=== PATIENT | female | born 1985 | race Caucasian/White ===

== ENCOUNTER → 2018-08-20 09:44 | Outpatient (CLI) | payer OTHER, SELFPAY ==
--- NOTE | 2018-08-20 09:50 | DI.US.S_ITS ---
LIMITED ULTRASOUND OF RIGHT BREAST: 08/20/2018 CLINICAL: Palpable right breast lump and galactorrhea in a patient who is no longer . Comparison is made to exam dated: 08/20/2018 [facility]. Ultrasound of the right breast 4 o'clock, and retroareolar regions was performed. There is mild, diffuse ductal ectasia. No intraductal masses. In the area of palpable concern, no abnormalities were seen sonographically in the right breast. IMPRESSION: NEGATIVE There is no sonographic evidence of malignancy. Clinical follow up for galactorrhea and palpable area. Findings and recommendations conveyed to the patient. This exam was interpreted at Station ID: [id number]. Electronically Signed By: Karissa siddiqi/:08/20/2018 12:33:26 letter sent: Clinical Evaluation Ultrasound BI-RADS: 1 Negative
--- NOTE | 2018-08-20 09:50 | DI.US.S_ITS ---
LIMITED ULTRASOUND OF LEFT BREAST: 08/20/2018 CLINICAL: Palpable left breast lump and galactorrhea in a patient who is no longer . No prior exams were available for comparison. Ultrasound of the left breast 2 o'clock, 8 o'clock, and retroareolar regions was performed. There is 0.6 cm x 0.3 cm x 0.6 cm oval mass in the left breast at 2 o'clock in the retroareolar region. This oval mass is hypoechoic without vascularity or posterior shadow. Mild diffuse ductal ectasia, symmetric compared to the contralateral breast. In the area of palpable abnormality, no sonographic findings. IMPRESSION: PROBABLY BENIGN The 0.6 cm x 0.3 cm x 0.6 cm oval mass in the left breast is probably benign, possibly glandular tissue focus. A follow-up ultrasound in 6 months is recommended to demonstrate stability. No abnormalities to correspond to palpable finding. Findings and recommendations conveyed to the patient. This exam was interpreted at Station ID: [id number]. Electronically Signed By: Karissa siddiqi/:08/20/2018 12:39:15 letter sent: Followup Recommended Ultrasound BI-RADS: 3 Probably benign
--- NOTE | 2018-08-20 09:50 | DI.MG.S_ITS ---
BILATERAL DIGITAL DIAGNOSTIC MAMMOGRAM 3D/2D: 08/20/2018 CLINICAL: Baseline exam. Galactorrhea. No prior exams were available for comparison. The tissue of both breasts is extremely dense, which lowers the sensitivity of mammography. No mammographic abnormalities seen in the retroareolar areas, or areas of bilateral palpable lumps. No significant masses, calcifications, or other findings are seen in either breast. IMPRESSION: INCOMPLETE: NEEDS ADDITIONAL IMAGING EVALUATION No mammographic abnormalities to correspond with clinical findings. Given extremely dense breasts, and palpable findings, ultrasound is recommended, and was immediately performed following this exam. This exam was interpreted at Station ID: [id number]. NOTE: For mammograms, a report in lay terms will be sent to the patient. Approximately 15% of breast malignancies will not be visualized mammographically. In the management of a palpable breast mass, a negative mammogram must not discourage biopsy of a clinically suspicious lesion. Electronically Signed By: Karissa siddiqi/:08/20/2018 12:29:07 ACR BI-RADS Category 0: Incomplete [id number]
== END ==
PROVIDERS: PCP Family Medicine; Visit Provider Family Medicine
DX: R92.8 Other abnormal and inconclusive findings on diagnostic imaging of breast (principal); N64.3 Galactorrhea not associated with childbirth
CPT/HCPCS: 76642; 77066; G0279

== ENCOUNTER 2021-09-13 17:57 | Emergency (ER) | payer OTHER, SELFPAY ==
[2021-09-13 18:47] VITALS: BP 125/65; PULSE 74; RESP 16; TEMP 36.7; O2SAT 100; BMI 22.6
--- NOTE | 2021-09-13 20:01 | ED_ITS ---
HPI - Animal Bite <James Gupta PA-C - Last Filed: 09/13/21 20:13> General Chief Complaint: Animal Bite Stated Complaint: Dog Bite, Right Wrist Time Seen by Provider: 09/13/21 19:26 History of Present Illness HPI narrative: Patient is a 35-year-old female presenting to the emergency department today for an evaluation a dog bite to the right wrist. Patient states that the family dog bit her right forearm earlier today causing her to sustain a puncture wound to the right forearm. Of note, the patient states that the dog has received all of its vaccinations and she explains that her tetanus is up-to-date. Patient denies pain or injury elsewhere. No fevers, chills, chest pain, cough, shortness of breath, nausea, vomiting, diarrhea, constipation, abdominal pain, dysuria, hematuria, numbness and tingling the upper extremities, or any other concerning symptoms reported. No further concerns were voiced at this time. Related Data Home Medications Medication Instructions Recorded Confirmed vitamin-ferrous fumarate 1 cap PO QDAY #0 04/28/16 65 mg iron-folic acid 1 mg capsule (Mynatal) Previous Rx's Medication Instructions Recorded norgestimate 0.25 mg-ethinyl 1 tab PO DAILY #84 tab 10/10/18 estradiol 35 mcg tablet (Ortho-Cyclen (28)) amoxicillin 875 mg-potassium 1 tab PO BID #13 tab 09/13/21 clavulanate 125 mg tablet Allergies Allergy/AdvReac Type Severity Reaction Status Date / Time No Known Allergies Allergy Uncoded 09/13/21 18:53 Review of Systems <James Gupta PA-C - Last Filed: 09/13/21 20:13> Constitutional Constitutional: Denies chills, Denies fatigue, Denies fever(s), Denies frequent falls, Denies lethargy and Denies weakness Eyes Eyes: Denies loss of vision ENT Ears, Nose, Mouth, and Throat: Denies dizziness and Denies neck pain Cardiovascular Cardiovascular: Denies chest pain, Denies irregular heart rhythm, Denies lightheadedness, Denies palpitations, Denies dyspnea, Denies dyspnea on exertion and Denies orthopnea Respiratory Respiratory: Denies cough, Denies dyspnea, Denies dyspnea on exertion and Denies wheezing Gastrointestinal Gastrointestinal: Denies abdominal pain, Denies change in bowel habits, Denies diarrhea, Denies nausea and Denies vomiting Genitourinary Genitourinary: Denies hematuria, Denies flank pain, Denies urinary incontinence and Denies urinary urgency Musculoskeletal Musculoskeletal: Denies back pain, Denies muscle weakness, Denies neck pain, Denies numbness and Denies tingling Integumentary/Breasts Skin/Breast: Denies pruritus, Denies erythema, Denies rash and Reports wounds (Dog bite/puncture wound right anterior forearm) Neurologic Neurologic: Denies behavioral changes, Denies confusion, Denies dizziness, Denies frequent falls, Denies loss of vision, Denies numbness, Denies tingling and Denies weakness Psychiatric Psychiatric: Denies behavioral changes and Denies confusion Endocrine Endocrine: Denies fatigue and Denies palpitations Allergic/Immunologic Allergic/Immunologic: Denies wheezing Patient History <James Gupta PA-C - Last Filed: 09/13/21 20:13> Social History Smoking Status: Never smoker Smoking Status: Never smoker Substance Use Type: does not use Exam <James Gupta PA-C - Last Filed: 09/13/21 20:13> Narrative Exam Narrative: GENERAL: 35 year old patient appears stated age. Well-developed patient, in no acute distress. HEAD: Atraumatic. Normocephalic. EYES: Pupils equal round and reactive. Extraocular motions intact. No scleral icterus. No injection or drainage. ENT: Nose without bleeding, purulent drainage. Throat without erythema, tonsillar hypertrophy or exudate. Airway patent. NECK: Trachea midline. Non tender CARDIOVASCULAR: Regular rate and rhythm without murmurs, gallops, or rubs. RESPIRATORY: Clear to auscultation. Breath sounds equal bilaterally. No wheezes, rales, or rhonchi. GASTROINTESTINAL: Abdomen soft, non-tender, nondistended. EXTREMITIES: No edema or joint tenderness. BACK: Nontender without deformity or crepitance. No flank tenderness. NEURO: AOx3. Gross motor function intact throughout the bilateral upper extrem ities. Good sensation light touch appreciated throughout the bilateral upper extremities. SKIN: No rash or erythema of visible areas. Puncture wound noted to the right anterior forearm approximately 0.2 cm in diameter. No significant surrounding erythema around the puncture wound. No foreign bodies appear retained within the wound. No active discharge or significant bleeding noticed from the wound. Initial Vital Signs Initial Vital Signs: Vital Signs Temperature 98.0 F 09/13/21 18:47 Pulse Rate 74 09/13/21 18:47 Respiratory Rate 16 09/13/21 18:47 Blood Pressure 125/65 09/13/21 18:47 Pulse Oximetry 100 09/13/21 18:47 <Kitty Pacheco MD - Last Filed: 09/14/21 03:57> Initial Vital Signs Initial Vital Signs: Vital Signs Temperature 98.0 F 09/13/21 18:47 Pulse Rate 74 09/13/21 18:47 Respiratory Rate 16 09/13/21 18:47 Blood Pressure 125/65 09/13/21 18:47 Pulse Oximetry 100 09/13/21 18:47 Course <James Gupta PA-C - Last Filed: 09/13/21 20:13> Course Course Narrative: Approximately 4 cc of 1% buffered lidocaine injected into the puncture site wound after it was cleaned with chlorhexidine. Wound was extensively irrigated with normal saline and a topical bacitracin was placed over the wound as it was wrapped. Orders Ordered: Discontinued Medications Amoxicillin/Clavulanate Potassium (Amoxicillin/Clav 875/125 Mg) 1 tab PO NOW ONE Stop: 09/13/21 20:02 Last Admin: 09/13/21 20:18 Dose: 1 tab Documented by: ALEXANDRIA Lidocaine/Sodium Bicarbonate (Lido 1%/Sod Bicarb 8.4% (10ml) 10 Ml Syringe) 10 ml INJ NOW ONE Stop: 09/13/21 19:45 Last Admin: 09/13/21 20:19 Dose: 10 ml Documented by: ALEXANDRIA Vital Signs Vital signs: Vital Signs - 8 hr 09/13/21 18:47 Temperature 98.0 F Pulse Rate 74 Respiratory Rate 16 Blood Pressure 125/65 Pulse Oximetry 100 <Kitty Pacheco MD - Last Filed: 09/14/21 03:57> Orders Ordered: Discontinued Medications Amoxicillin/Clavulanate Potassium (Amoxicillin/Clav 875/125 Mg) 1 tab PO NOW ONE Stop: 09/13/21 20:02 Last Admin: 09/13/21 20:18 Dose: 1 tab Documented by: A[place]ANDRIA Lidocaine/Sodium Bicarbonate (Lido 1%/Sod Bicarb 8.4% (10ml) 10 Ml Syringe) 10 ml INJ NOW ONE Stop: 09/13/21 19:45 Last Admin: 09/13/21 20:19 Dose: 10 ml Documented by: ALEXANDRIA Vital Signs Vital signs: Vital Signs - 8 hr 09/13/21 18:47 Temperature 98.0 F Pulse Rate 74 Respiratory Rate 16 Blood Pressure 125/65 Pulse Oximetry 100 MDM - Animal Bite <James Gupta PA-C - Last Filed: 09/13/21 20:13> MDM Narrative Medical decision making narrative: Differential diagnosis to consider but not limited to dog bite versus puncture wound versus superficial skin laceration versus deep tissue laceration verses abscess. Physical examination history overall very reassuring. I was able to be irrigated the wound extensively in the emergency department after cleaning the wound with chlorhexidine. I urged the patient to keep the area clean and dry and wrapped, and I a stress the importance of avoiding soaking the wound until it is completely healed. Additionally, I discussed plan with patient to start her on antibiotics. Patient expresses understanding and agrees to plan. I urged the patient follow-up with her primary care provider or here in the emergency department in the next few days for wound recheck. Patient expresses understanding and agrees to plan. She states that this time she is comfortable being discharged home and is stable for discharge. Strict return precautions were discussed with the patient prior to discharge. Discharge Plan Departure Patient Disposition: Home Clinical Impression: Dog bite, Puncture wound of forearm, right Instructions: DI for Dog Bite Activity Restrictions/Additional Instructions: *You have been diagnosed with dog bite, right forearm puncture wound *What to do: *Please continue to take your regular medications as directed. [X] New medication prescriptions sent to your pharmacy: [facility] - Augmentin [ ] New medication written as a paper prescription [ ] No new medications given You were evaluated in the emergency department today for a dog bite to the right forearm. Physical examination and history are very reassuring. Please ensure the keep the wound clean, dry, and wrapped and avoid soaking the wound until it is completely healed. I recommend following up with the primary care provider, at urgent care, or here in the emergency department in the next few days to have the wound re-evaluated to ensure there are no signs of infection. I have sent a prescription antibiotics to your preferred pharmacy. Ensure that you completed this antibiotic course and take as directed. I recommend following up with the primary care provider within the next 2-3 days for further evaluation and management. Please do not hesitate to return to the emergency department if you experience fever, discharge from the wound, swelling and warmth around the wound, or any other concerning symptoms. *Please follow up with your primary care provider in 2-3 days, call for an appointment. Let them know you were seen in the Emergency Department and that we ask that you be seen in follow up. We will electronically transmit a record of today's note if your PCP is in our system *If you do not have a primary care provider please contact the [facility] Resource line at [phone]. They will ask some questions about your medical history and help get you set up with a doctor in the community. *Return to Emergency Department if you should have any new, worsening or conc erning symptoms, such as fever greater than 101 F, shaking chills, worsening pain, persistent vomiting or other bothersome symptoms. Prescriptions: New amoxicillin-pot clavulanate 875-125 mg tablet 1 tab PO BID Qty: 13 0RF No Action vit-iron fum-folic ac [Mynatal] 1 CAP capsule 1 cap PO QDAY Qty: 0 0RF norgestimate-ethinyl estradiol [Ortho-Cyclen (28)] 0.25-35 mg-mcg tablet 1 tab PO DAILY Qty: 84 1RF Referrals: Ivana Singleton MD [Primary Care Provider] - <Kitty Pacheco MD - Last Filed: 09/14/21 03:57> [facility] I was immediately available in the department for consultation throughout this patient's visit. I agree with documentation as above. Kitty Pacheco MD
[2021-09-13] MEDS: AMOXICILLIN/CLAV 875/125 MG 1 TAB PO (20:18)
[2021-09-13] MEDS: LIDO 1%/SOD BICARB 8.4% (10ML) 10 ML SYRINGE INJ (20:19)
== END 2021-09-13 20:30 | disposition home or self-care (01) ==
PROVIDERS: Emergency Provider Physician Assistant; PCP Family Medicine
DX: S51.851A Open bite of right forearm, initial encounter (principal); W54.0XXA Bitten by dog, initial encounter
CPT/HCPCS: 99283

== ENCOUNTER 2023-04-03 14:00 | Outpatient (RCR) | payer OTHER, SELFPAY ==
--- NOTE | 2023-02-27 18:19 | PT.OIE ---
Current Diagnoses Stiffness of unspecified hip, not elsewhere classified (02/27/23) Separation of muscle (nontraumatic), other site (02/27/23) Muscle weakness (generalized) (02/27/23) Other female genital prolapse (02/27/23) Visit Care Team Role Provider Type Elvia Chacko PA-C Attending Provider Non-Staff Family Provider Primary Care Provider Referring Provider Specialty: Medical Address: [address] [place] [address], [address] Phone: Fax: Email: [email or web address] [facility] Initial Evaluation PT-OP-A Visit Information Start: 02/23/23 17:41 Freq: Status: Active Protocol: Document 02/27/23 13:22 LRN (Rec: 02/27/23 14:17 LRN [id number]) Out-Patient Physical Therapy Visit Information Visit Information Visit Type Initial Evaluation Visit Start Time 13:22 Visit Stop Time 14:14 Total Visit Minutes 52 Visit Number 06/17 Evaluation Information Evaluation Date 02/27/23 Precautions Precautions mini-abdominoplasty PT-OP-B Current Condition Start: 02/23/23 17:41 Freq: Status: Active Protocol: Document 02/27/23 13:22 LRN (Rec: 02/27/23 14:17 LRN [id number]) Current Condition History of Current Condition Onset Date 6 months ago. Current Complaints Weakness of PF with sexual intercourse. History of Current Condition Pt denies bladder leakage. With sexual intercourse notices she is not as tight in PF and thinks it may be due to changes with her cycle. She reports a scan has show uterus is retroverted to the back and right. She feels her uterus has shifted previously , but is not been identified by imaging. States after 3 children her uterus may have moved. States her lower abdominal ms are not as tight. Has done Kegels and DR monae's but doesn't physically see a change in the bump in the lower abdominals. Prior Treatments and Tests None. Developmental History Developmental History 3 pregnancies and 3 births and all vaginal (13, 11, almost 7 yo). Minor tearing with firstborn and small with the 2nd . Denies urinary leakage after births. Treatment Goals Patient/Caregiver Goals Pt goals: Would like to increase tightness of the PF contractions during intercourse. Strength the lower abdomen to reduce the bump of the DRDorene HEP to continue to further reduce the bump from DR. Personal Factors Other Personal Factors That May Effect Cosemetic surgeries: Breast Therapy/Recovery augmentation, Mini abdominalplasty of skin, nothing muscular. Pt will be moving out of state with spouse by . PT-OP-C Subjective Start: 02/23/23 17:41 Freq: Status: Active Protocol: Document 02/27/23 13:22 LRN (Rec: 02/27/23 14:17 LRN [id number]) Patient Questionnaires Pelvic Pain and Urgency/Frequency Patient Symptom Scale Pelvic Pain Score 2 PT-OP-I Pelvic Floor Start: 02/23/23 17:41 Freq: Status: Active Protocol: Document 02/27/23 13:22 LRN (Rec: 02/27/23 14:17 LRN [id number]) Pelvic Floor Assessment Bowel Bowel Symptoms Constipation Other Bowel Symptoms Intermittently Bowel Movement Frequency 1-3 daily Pasco Stool Chart Type 1-7 2 Pasco Stool Chart Comments Mostly bowels type 2 & 6 Pelvic Clock Pelvic Clock 12-3 Tenderness Pelvic Clock 3-6 Tenderness Pelvic Clock 9-12 Tenderness Prolapse Rectocele Grade 2 Perineal Descent Resting Absent Bearing Absent Contraction Ability Voluntary Contraction Moderate Voluntary Relaxation Moderate Manual Muscle Testing Left 3 Manual Muscle Testing Right 0 Manual Muscle Testing Anterior 2 Manual Muscle Testing Posterior 3 Muscle Endurance (Seconds) 3 Number of Quick Contractions In 10 5 Seconds Comments Pelvic Floor Comments Visible Anal wink & mild clitoral nod. Excessive loose tissue felt at 6 of the PF clock. Area of tissue bulge felt at 10-11 of the PF clock. PT-OP-J Posture/Palpation/Skin Start: 02/23/23 17:41 Freq: Status: Active Protocol: Document 02/27/23 13:22 LRN (Rec: 02/27/23 14:17 LRN [id number]) Posture Evaluation Position Standing Head/C-Spine Posture Neutral Position T-Spine Posture Neutral L-Spine Posture Neutral Shoulder Posture (L) Elevated Pelvis Posture Neutral Weight Distribution Balanced Knee Posture (L) Genu Varus,(R) Genu Varus PT-OP-K Range of Motion Start: 02/23/23 17:41 Freq: Status: Active Protocol: Document 02/27/23 13:22 LRN (Rec: 02/27/23 14:17 LRN [id number]) Lumbar Spine Range of Motion Lumbar Spine Active Degrees Testing Position Standing Flexion 87 Extension 15 Rotation Left 40 Rotation Right 30 Lateral Flexion Left 20 Lateral Flexion Right 13 Comments Trunk AROM: Flexion is 87 deg ?s with 52 deg?s hip flexion, Trunk extension is 20 deg?s with 15 deg?s hip extension. Hip Goniometric Range of Motion Hip Right Passive Testing Position Supine Internal Rotation 55 External Rotation 60 Left Passive Testing Position Supine Internal Rotation 60 External Rotation 60 PT-OP-M Strength Start: 02/23/23 17:41 Freq: Status: Active Protocol: Document 02/27/23 13:22 LRN (Rec: 02/27/23 14:17 LRN [id number]) Trunk Strength Trunk Manual Muscle Testing Core Stabilization Loss of core stab and abdominal doming is present ( with exception of hip ext) with R hip flex, ext, AD. Hip Strength Hip Manual Muscle Testing Right Flexion (L2) 5 Normal Extension (S1) 4 Good Abduction 5 Normal Adduction 4+ Good+ External Rotation 5 Normal Internal Rotation 3+ Fair+ Left Flexion (L2) 5 Normal Extension (S1) 5 Normal Abduction 5 Normal Adduction 5 Normal External Rotation 4 Good Internal Rotation 3+ Fair+ PT-OP-Q Treatments Start: 02/23/23 17:41 Freq: Status: Active Protocol: Document 02/27/23 13:22 LRN (Rec: 02/27/23 14:17 LRN [id number]) Therapeutic Exercises Sitting Exercises Abdominal deep breathing Sitting Exercise Name Deep Breathing Reps/Minutes 2 Self-Care/Home Management Treatment Education Other Education Discussed results of evaluation, goals, and plan of care (POC). Pt agreeable to goals and POC. Activities Self-Care/Home Management Activities I/S pt in abdominal deep breathing. Pt to work on relaxation of her PF after PF contractions. PT-OP-T Assessment and Plan Start: 02/23/23 17:41 Freq: Status: Active Protocol: Document 02/27/23 13:22 LRN (Rec: 02/27/23 14:17 LRN [id number]) Physical Therapy Assessment Rehab Potential Rehabilitation Potential Excellent Evaluation Complexity Number of Personal Factors/Comorbidities 1-2 Number of Body Systems Impaired 3 Clinical Presentation at Evaluation Stable Impairments Impairments ROM,Soft Tissue Mobility, Strength Goals Three Impairment Decreased PF contraction strength with sexual intercourse Short Term Goal (STG) Eliminate PF tenderness to improve PF contraction strength. STG Duration 03/20/23 (3 weeks) Mcc Goal (LTG) Pt and spouse will notice an increase feeling of PF tightness with sexual intercourse. LTG Duration 04/10/23 (6 weeks) Two Impairment Abdominal doming with TA tightening and daily activities Impairment Doming visible with transfers and pt daily activities. Umbilicus 4 above: Closed Umbilicus 3 above: 1/4 finger widths Umbilicus 2 above: 2 finger widths, very shallow Umbilicus 1 above: 2 finger widths, very shallow Umbilicus Umbilicus: 1 below: 2.5 finger widths Umbilicus: 2 below: 2.5 finger widths Umbilicus: 3 below: Closed Short Term Goal (STG) Strengthen TA to decrease doming with transfers. STG Duration 03/20/23 (3 weeks) [employer] Goal (LTG) Strength the lower abdomen with reduction of DR and reduction of doming with daily activities. LTG Duration 04/10/23 (6 weeks) One Impairment Lacks appropriate self care HEP Short Term Goal (STG) Pt will be educated in proper deep breathing and core pressure management. STG Duration 03/10/23 (2 weeks) Mcc Goal (LTG) Pt will be educated in a self care HEP of progressive core strengthening without onset of doming of abdomen. 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 The pt demonstrates tenderness/ tightness of her PF and DR of 2-2.5 finger widths (but shallow). 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 The pt should respond well to STM to the PF to improve her strength. Her DR is not severe but due to the chronicity of her DR, fair to good prognosis in decreasing the DR. I believe STM and strengthening to the abdomen will be beneficial in achieving greater closure of her DR. The pt will be leaving in 6 wks due to her spouse being transferred; therefore she may need further physical therapy once she relocates to a new location. The pt will benefit from skilled physical therapy to improve her PF strength, reduce her DR and for pt education, mobility exercises, body mechanics training and STM to help her achieve her above stated goals. Physical Therapy Plan Frequency and Duration Frequency of Treatment 1x/Week Duration of treatment (weeks) 6 Plan of Care Start Date 02/27/23 Plan of Care End Date 04/10/23 Therapeutic Interventions Therapeutic Interventions Home Exercise Program,Joint Mobilizations,Manual Therapy, Neuromuscular Re-education, Patient/Caregiver Education, Self-Care/Home Management,Soft Tissue Mobilization, Therapeutic Activities, Therapeutic Exercises Modalities Biofeedback,Electric Stimulation Other Referrals/Consults Referrals/Consults Recommended Recommend OBGYN assessment of soft tissue anomaly of 10-11 of PF clock. Next Visit Focus/Plan Next Note Type Treatment Note Next Visit Plan Next: Refer pt back to request OBGYN consult for soft tissue anomaly of 10-11 of PF clock. EMG Biofeedback for PF strength assessment. Biofeedback for most likely PF relaxation between reps. DR reduction: Deep breathing, TA strengthening (4 pt, hands /knees push)/core strengthening, hip R AD & humza IR strengthening. Stretches: Hip ER & Trunk R SB & rot stretch Manual: PF stretching and issuance of dilator if needed. Stretch abdominal region for tightness/restrictions to close DR (abdominal rotators, TA & QL). PF stretch to decrease pain. ? Iliococcygeus and coccygeous of levator ani ms ? external and internal to correct PF tone dysfunction & levator ani release as needed. STM: Urachus & Round Ligament. Education: Deep breathing, core pressure management. JMT: Sacral balancing if needed.
--- NOTE | 2023-03-13 16:17 | PT.OTN ---
Current Diagnoses Stiffness of unspecified hip, not elsewhere classified (03/13/23) Separation of muscle (nontraumatic), other site (03/13/23) Muscle weakness (generalized) (03/13/23) Other female genital prolapse (03/13/23) Physical Therapy Treatment Note PT-OP-A Visit Information Start: 02/23/23 17:41 Freq: Status: Active Protocol: Document 03/13/23 13:19 LRN (Rec: 03/13/23 14:06 LRN [id number]) Out-Patient Physical Therapy Visit Information Visit Information Visit Type Treatment Note Visit Start Time 13:20 Visit Stop Time 13:58 Total Visit Minutes 38 Visit Number 3 Evaluation Information Evaluation Date 02/27/23 Precautions Precautions mini-abdominoplasty PT-OP-B Current Condition Start: 02/23/23 17:41 Freq: Status: Active Protocol: Document 02/27/23 13:22 LRN (Rec: 02/27/23 14:17 LRN [id number]) Current Condition History of Current Condition Onset Date 6 months ago. Current Complaints Weakness of PF with sexual intercourse. History of Current Condition Pt denies bladder leakage. With sexual intercourse notices she is not as tight in PF and thinks it may be due to changes with her cycle. She reports a scan has show uterus is retroverted to the back and right. She feels her uterus has shifted previously , but is not been identified by imaging. States after 3 children her uterus may have moved. States her lower abdominal ms are not as tight. Has done Kegels and DR monae's but doesn't physically see a change in the bump in the lower abdominals. Prior Treatments and Tests None. Developmental History Developmental History 3 pregnancies and 3 births and all vaginal (13, 11, almost 7 yo). Minor tearing with firstborn and small with the 2nd . Denies urinary leakage after births. Treatment Goals Patient/Caregiver Goals Pt goals: Would like to increase tightness of the PF contractions during intercourse. Strength the lower abdomen to reduce the bump of the DRDorene HEP to continue to further reduce the bump from DR. Personal Factors Other Personal Factors That May Effect Cosemetic surgeries: Breast Therapy/Recovery augmentation, Mini abdominalplasty of skin, nothing muscular. Pt will be moving out of state with spouse by . PT-OP-C Subjective Start: 02/23/23 17:41 Freq: Status: Active Protocol: Document 03/13/23 13:19 LRN (Rec: 03/13/23 14:06 LRN [id number]) OP-PT Subjective Patient Comments Patient Comments Doing, at end of 10 reps, feels tired. PT-OP-I Pelvic Floor Start: 02/23/23 17:41 Freq: Status: Active Protocol: Document 03/06/23 13:00 LRN (Rec: 03/06/23 14:05 LRN [id number]) Pelvic Floor Assessment SEMG (uV) Baseline 4.9 Quick Contraction 12.7 Recruitment Pattern Good Relaxation Fair Holding Fair Stability of Hold Poor/Slow SEMG Stability of Rest Poor/Slow PT-OP-J Posture/Palpation/Skin Start: 02/23/23 17:41 Freq: Status: Active Protocol: Document 02/27/23 13:22 LRN (Rec: 02/27/23 14:17 LRN [id number]) Posture Evaluation Position Standing Head/C-Spine Posture Neutral Position T-Spine Posture Neutral L-Spine Posture Neutral Shoulder Posture (L) Elevated Pelvis Posture Neutral Weight Distribution Balanced Knee Posture (L) Genu Varus,(R) Genu Varus PT-OP-K Range of Motion Start: 02/23/23 17:41 Freq: Status: Active Protocol: Document 02/27/23 13:22 LRN (Rec: 02/27/23 14:17 LRN [id number]) Lumbar Spine Range of Motion Lumbar Spine Active Degrees Testing Position Standing Flexion 87 Extension 15 Rotation Left 40 Rotation Right 30 Lateral Flexion Left 20 Lateral Flexion Right 13 Comments Trunk AROM: Flexion is 87 deg ?s with 52 deg?s hip flexion, Trunk extension is 20 deg?s with 15 deg?s hip extension. Hip Goniometric Range of Motion Hip Right Passive Testing Position Supine Internal Rotation 55 External Rotation 60 Left Passive Testing Position Supine Internal Rotation 60 External Rotation 60 PT-OP-M Strength Start: 02/23/23 17:41 Freq: Status: Active Protocol: Document 02/27/23 13:22 LRN (Rec: 02/27/23 14:17 LRN [id number]) Trunk Strength Trunk Manual Muscle Testing Core Stabilization Loss of core stab and abdominal doming is present ( with exception of hip ext) with R hip flex, ext, AD. Hip Strength Hip Manual Muscle Testing Right Flexion (L2) 5 Normal Extension (S1) 4 Good Abduction 5 Normal Adduction 4+ Good+ External Rotation 5 Normal Internal Rotation 3+ Fair+ Left Flexion (L2) 5 Normal Extension (S1) 5 Normal Abduction 5 Normal Adduction 5 Normal External Rotation 4 Good Internal Rotation 3+ Fair+ PT-OP-Q Treatments Start: 02/23/23 17:41 Freq: Status: Active Protocol: Document 03/13/23 13:19 LRN (Rec: 03/13/23 14:06 LRN [id number]) Therapeutic Exercises Supine Exercises Hip stretches Supine Exercise Name Quick Review of hip stretches: Piriformis, Lateral Hip, Fig 4, Iliopsoas Side bilateral Reps/Minutes 3' Comments Minimal to no cuing needed. Happy Baby Pose Supine Exercise Name Happy Baby Pose Reps/Minutes 2' Comments Phys & v cuing for hand placement and breathing coordination. Oblique tightening Supine Exercise Name Oblique Navdeep Side bilateral Reps/Minutes 10 SH x 10 Comments Cuing needed to keep abdomen from doming during navdeep hold. TA tightening Supine Exercise Name TA tightening Reps/Minutes 5 SH x 2 Comments Cuing needed to not breathhold during navdeep hold. Sitting Exercises Abdominal deep breathing Sitting Exercise Name Deep Breathing Reps/Minutes 1 Comments Cued pt to cont abdominal breathing vs chest breathing Other Exercises Hands/knees Other Exercise Name TA tightening Reps/Minutes 5SH x 5 Comments Cuing for neutral spine stabilization Neuro Re-Education Treatment Other Activities PF decrease in tone Details Biofeedback training to decr resting tone < 3.0 Reps/Duration 11' Comments Cuing for deep breathing and release of substitute ms to decrease resting tone to 3 uV' s or less. PF strengthening Details EMG neuro re-educ for PF contraction holding and release at rest Reps/Duration 12' Comments Tightening avg is 10.5 uV's, Rest is 4.9uV's. Pt able to hold better, but decreasing resting tone below 4.0 takes extra time. Self-Care/Home Management Treatment Activities Self-Care/Home Management Activities Issued & Review of hip stretches HEP: Piriformis, Lateral Hip, Fig 4, Iliopsoas PT-OP-T Assessment and Plan Start: 02/23/23 17:41 Freq: Status: Active Protocol: Document 03/13/23 13:19 LRN (Rec: 03/13/23 14:06 [id number] [id number]) Physical Therapy Assessment Goals Three Impairment Decreased PF contraction strength with sexual intercourse Short Term Goal (STG) Eliminate PF tenderness to improve PF contraction strength. 03/06/23: HEP of self stretching of PF. 03/13/23: I/S in Happy Baby Pose. Added to HEP: Piriformis, Lateral Hip, Fig 4 , Iliopsoas stretches STG Duration 03/20/23 (3 weeks) progressed 03/13/23 [employer] Of [employer] Partnership[employer] Goal (LTG) Pt and spouse will notice an increase feeling of PF tightness with sexual intercourse. LTG Duration 04/10/23 (6 weeks) Two Impairment Abdominal doming with TA tightening and daily activities Impairment Doming visible with transfers and pt daily activities. Umbilicus 4 above: Closed Umbilicus 3 above: 1/4 finger widths Umbilicus 2 above: 2 finger widths, very shallow Umbilicus 1 above: 2 finger widths, very shallow Umbilicus Umbilicus: 1 below: 2.5 finger widths Umbilicus: 2 below: 2.5 finger widths Umbilicus: 3 below: Closed Short Term Goal (STG) Strengthen TA to decrease doming with transfers. STG Duration 03/20/23 (3 weeks) Residential Goal (LTG) Strength the lower abdomen with reduction of DR and reduction of doming with daily activities. 03/13/23: No doming noted with cuing for TA tight with navdeep hands/knees push in supine. LTG Duration 04/10/23 (6 weeks) progressed 03/13/23 One Impairment Lacks appropriate self care HEP Short Term Goal (STG) Pt will be educated in proper deep breathing and core pressure management. 03/13/23: Pt educated in proper breathing and core pressure management with exercise. STG Duration 03/10/23 (2 weeks) (03/13/23: MET GOAL) Residential Goal (LTG) Pt will be educated in a self care HEP of progressive core strengthening without onset of doming of abdomen. 03/13/23: TA tightening in supine and hands/knees navdeep push. LTG Duration 04/10/23 (6 weeks) progressed 03/13/23 Assessment Summary Assessment Good deep breathing mechanics, showing good abdominal excursion vs chest excursion. Use of biofeedback was helpful in pt being able to hold a PF contraction and to be more aware of how to relax the PF. 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 Next: Cont Biofeedback for PF relaxation between reps and long hold neuro-keaton. DR reduction: TA strengthening (Review TA tightening & hands/knees push) , add core strengthening trunk rot with TBand, and add hip R AD & humza IR strengthening. Stretches: Add Trunk R SB & manual rot stretch Manual: PF stretching ( Urachus & Round Ligament), monitor home dilator stretching. Stretch abdominal region for tightness/ restrictions to close DR ( abdominal rotators, TA & QL). Check PF strength before and after: PF stretch to decrease pain. ? Iliococcygeus and coccygeous of levator ani ms ? external and internal to correct PF tone dysfunction & levator ani release as needed. JMT: Check if Sacral balancing needed.
--- NOTE | 2023-03-23 16:55 | PT.OTN ---
Current Diagnoses Stiffness of unspecified hip, not elsewhere classified (03/23/23) Separation of muscle (nontraumatic), other site (03/23/23) Muscle weakness (generalized) (03/23/23) Other female genital prolapse (03/23/23) Physical Therapy Treatment Note PT-OP-A Visit Information Start: 02/23/23 17:41 Freq: Status: Active Protocol: Document 03/23/23 13:24 LRN (Rec: 03/23/23 14:11 LRN [id number]) Out-Patient Physical Therapy Visit Information Visit Information Visit Type Treatment Note Visit Start Time 13:24 Visit Stop Time 14:08 Total Visit Minutes 44 Visit Number 4 Evaluation Information Evaluation Date 02/27/23 Precautions Precautions mini-abdominoplasty PT-OP-B Current Condition Start: 02/23/23 17:41 Freq: Status: Active Protocol: Document 02/27/23 13:22 LRN (Rec: 02/27/23 14:17 LRN [id number]) Current Condition History of Current Condition Onset Date 6 months ago. Current Complaints Weakness of PF with sexual intercourse. History of Current Condition Pt denies bladder leakage. With sexual intercourse notices she is not as tight in PF and thinks it may be due to changes with her cycle. She reports a scan has show uterus is retroverted to the back and right. She feels her uterus has shifted previously , but is not been identified by imaging. States after 3 children her uterus may have moved. States her lower abdominal ms are not as tight. Has done Kegels and DR monae's but doesn't physically see a change in the bump in the lower abdominals. Prior Treatments and Tests None. Developmental History Developmental History 3 pregnancies and 3 births and all vaginal (13, 11, almost 7 yo). Minor tearing with firstborn and small with the 2nd . Denies urinary leakage after births. Treatment Goals Patient/Caregiver Goals Pt goals: Would like to increase tightness of the PF contractions during intercourse. Strength the lower abdomen to reduce the bump of the DRDorene HEP to continue to further reduce the bump from DR. Personal Factors Other Personal Factors That May Effect Cosemetic surgeries: Breast Therapy/Recovery augmentation, Mini abdominalplasty of skin, nothing muscular. Pt will be moving out of state with spouse by . PT-OP-C Subjective Start: 02/23/23 17:41 Freq: Status: Active Protocol: Document 03/23/23 13:24 LRN (Rec: 03/23/23 14:11 LRN [id number]) OP-PT Subjective Patient Comments Patient Comments N0 PF pain. [place] does' nt feel like she can tighten enough, spouse said she tighten too much. States she will have her PF vaginal tissues checked when she moves to her next location because paperwork will not be done by the time she leaves. Pt has ~ 3-4 more visits. PT-OP-I Pelvic Floor Start: 02/23/23 17:41 Freq: Status: Active Protocol: Document 03/06/23 13:00 LRN (Rec: 03/06/23 14:05 LRN [id number]) Pelvic Floor Assessment SEMG (uV) Baseline 4.9 Quick Contraction 12.7 Recruitment Pattern Good Relaxation Fair Holding Fair Stability of Hold Poor/Slow SEMG Stability of Rest Poor/Slow PT-OP-J Posture/Palpation/Skin Start: 02/23/23 17:41 Freq: Status: Active Protocol: Document 03/23/23 13:24 LRN (Rec: 03/23/23 16:37 LRN [id number]) Palpation Assessment Location Abdomen Palpation Location DR Palpation Details Above umbilicus: 3 inches- Closed; 2 inches-1.5 finger widths; 1 inch -2 fingerwidths . Below umbilicus: 2 inches- closed; 1 inch-1.5 finger widths. PT-OP-K Range of Motion Start: 02/23/23 17:41 Freq: Status: Active Protocol: Document 02/27/23 13:22 LRN (Rec: 02/27/23 14:17 LRN [id number]) Lumbar Spine Range of Motion Lumbar Spine Active Degrees Testing Position Standing Flexion 87 Extension 15 Rotation Left 40 Rotation Right 30 Lateral Flexion Left 20 Lateral Flexion Right 13 Comments Trunk AROM: Flexion is 87 deg ?s with 52 deg?s hip flexion, Trunk extension is 20 deg?s with 15 deg?s hip extension. Hip Goniometric Range of Motion Hip Right Passive Testing Position Supine Internal Rotation 55 External Rotation 60 Left Passive Testing Position Supine Internal Rotation 60 External Rotation 60 PT-OP-M Strength Start: 02/23/23 17:41 Freq: Status: Active Protocol: Document 02/27/23 13:22 LRN (Rec: 02/27/23 14:17 LRN [id number]) Trunk Strength Trunk Manual Muscle Testing Core Stabilization Loss of core stab and abdominal doming is present ( with exception of hip ext) with R hip flex, ext, AD. Hip Strength Hip Manual Muscle Testing Right Flexion (L2) 5 Normal Extension (S1) 4 Good Abduction 5 Normal Adduction 4+ Good+ External Rotation 5 Normal Internal Rotation 3+ Fair+ Left Flexion (L2) 5 Normal Extension (S1) 5 Normal Abduction 5 Normal Adduction 5 Normal External Rotation 4 Good Internal Rotation 3+ Fair+ PT-OP-Q Treatments Start: 02/23/23 17:41 Freq: Status: Active Protocol: Document 03/23/23 13:24 LRN (Rec: 03/23/23 14:11 LRN [id number]) Therapeutic Exercises Supine Exercises Trunk Rot Supine Exercise Name Trunk rot, hands at chest, exhale on twist. Side bilateral Equipment Used Lev 3 TB Reps/Minutes 10x each Comments Cuing for TA to start & coordination of breathing w/ motion Paloff Press Supine Exercise Name Paoff Press Side bilateral Equipment Used Lev 3 TB Reps/Minutes 10x 3 Comments Cuing to start with TA, then holding core while moving arms Oblique tightening Supine Exercise Name Oblique Navdeep Side bilateral Reps/Minutes 10 SH x 10 Comments Cuing needed to keep abdomen from doming during navdeep hold. TA tightening Supine Exercise Name TA tightening Reps/Minutes 5 SH x 2 Comments Cuing needed to not breathhold during navdeep hold. Manual Therapy Treatment Soft Tissue Mobilization Abdominal stretching Body Location Rectus abdominus in all directions Mobilization Type Myofascial Release,Sustained Pressure Intensity/Depth Moderate Body Position Hooklying Comments Concentrating on equalizing mobility of tissues. Neuro Re-Education Treatment Other Activities PF decrease in tone Details Downtraining of PF resting tone after 5 & 10 holds to 3 uV's or less. Reps/Duration 20' Comments Cuing for release of substitute ms to decrease resting tone to 3 uV's or less . Discussed pt might try PF stretching before intercourse. Self-Care/Home Management Treatment Activities Self-Care/Home Management Activities I/S pt in Trunk Rot strengthening for upper trunk rotators. Issued Lev 3 TBand for HEP. PT-OP-T Assessment and Plan Start: 02/23/23 17:41 Freq: Status: Active Protocol: Document 03/23/23 13:24 LRN (Rec: 03/23/23 14:11 LRN [id number]) Physical Therapy Assessment Goals Three Impairment Decreased PF contraction strength with sexual intercourse Short Term Goal (STG) Eliminate PF tenderness to improve PF contraction strength. 03/06/23: HEP of self stretching of PF. 03/13/23: I/S in Happy Baby Pose. Added to HEP: Piriformis, Lateral Hip, Fig 4 , Iliopsoas stretches. STG Duration 03/20/23 (3 weeks) progressed 03/13/23 Shelter Goal (LTG) Pt and spouse will notice an increase feeling of PF tightness with sexual intercourse. 03/23/23: Spouse reporting pt too tight with intercourse. LTG Duration 04/10/23 (6 weeks) (03/23/23 : MET GOAL) Two Impairment Abdominal doming with TA tightening and daily activities Impairment Doming visible with transfers and pt daily activities. Umbilicus 4 above: Closed Umbilicus 3 above: 1/4 finger widths Umbilicus 2 above: 2 finger widths, very shallow Umbilicus 1 above: 2 finger widths, very shallow Umbilicus Umbilicus: 1 below: 2.5 finger widths Umbilicus: 2 below: 2.5 finger widths Umbilicus: 3 below: Closed Short Term Goal (STG) Strengthen TA to decrease doming with transfers. 03/23/23: Doming noted if pt does not perform TA before head lift. Umbilicus: 3 above-Closed; 2 above-1.5 finger widths; 1 above -2 fingerwidths. 2 below- closed; 1 below-1.5 finger widths. STG Duration 03/20/23 (3 weeks) progressed 03/23/23 Shelter Goal (LTG) Strength the lower abdomen with reduction of DR and reduction of doming with daily activities. 03/13/23: No doming noted with cuing for TA tight with navdeep hands/knees push in supine. 03/23/23: No doming noted with resisted trunk rotation. LTG Duration 04/10/23 (6 weeks) progressed 03/23/23 One Impairment Lacks appropriate self care HEP Short Term Goal (STG) Pt will be educated in proper deep breathing and core pressure management. 03/13/23: Pt educated in proper breathing and core pressure management with exercise. STG Duration 03/10/23 (2 weeks) (03/13/23: MET GOAL) Shelter Goal (LTG) Pt will be educated in a self care HEP of progressive core strengthening without onset of doming of abdomen. 03/13/23: TA tightening in supine and hands/knees navdeep push. 03/23/23: I/S in Paloff press and ARROM of trunk rotation. LTG Duration 04/10/23 (6 weeks) progressed 03/23/23 Assessment Summary Assessment Pt has found with spouse that she has tightness vs weakness during intercourse and may need stretching beforehand. Pt has mild DR with greater opening above umbilicus compared to below. Pt appears to be consistent with her HEP and was knowledgeable in her exercises. Physical Therapy Plan Frequency and Duration Frequency of Treatment 1x/Week Duration of treatment (weeks) 6 Plan of Care Start Date 02/27/23 Plan of Care End Date 04/10/23 Next Visit Focus/Plan Next Note Type Treatment Note Next Visit Plan Next: Assess HEP of trunk rot strengthening. JMT: Check Sacral balancing and treat as needed. Check for PF pain. Neuro-keaton for PF relaxation between reps and long hold (10 [address]). DR reduction: TA upper rotational strengthening ( Review TA tightening & hands/ knees push), progress core strengthening trunk rot with TBand, and add hip R AD & humza IR strengthening. Stretches: Add Trunk R SB & manual rot stretch Manual: monitor home dilator stretching. Stretch abdominal region for tightness to close DR (abdominal rotators, TA & QL). Monitor PF strength before and after: PF stretch to decrease pain. ? Iliococcygeus and coccygeous of levator ani ms ? external and internal to correct PF tone dysfunction & levator ani release as needed.
--- NOTE | 2023-03-27 15:47 | PT.OTN ---
Current Diagnoses Stiffness of unspecified hip, not elsewhere classified (03/27/23) Separation of muscle (nontraumatic), other site (03/27/23) Muscle weakness (generalized) (03/27/23) Other female genital prolapse (03/27/23) Physical Therapy Treatment Note PT-OP-A Visit Information Start: 02/23/23 17:41 Freq: Status: Active Protocol: Document 03/27/23 13:18 LRN (Rec: 03/27/23 15:47 LRN [id number]) Out-Patient Physical Therapy Visit Information Visit Information Visit Type Treatment Note Visit Start Time 13:18 Visit Stop Time 13:59 Total Visit Minutes 41 Visit Number 5 Evaluation Information Evaluation Date 02/27/23 Precautions Precautions mini-abdominoplasty PT-OP-B Current Condition Start: 02/23/23 17:41 Freq: Status: Active Protocol: Document 02/27/23 13:22 LRN (Rec: 02/27/23 14:17 LRN [id number]) Current Condition History of Current Condition Onset Date 6 months ago. Current Complaints Weakness of PF with sexual intercourse. History of Current Condition Pt denies bladder leakage. With sexual intercourse notices she is not as tight in PF and thinks it may be due to changes with her cycle. She reports a scan has show uterus is retroverted to the back and right. She feels her uterus has shifted previously , but is not been identified by imaging. States after 3 children her uterus may have moved. States her lower abdominal ms are not as tight. Has done Kegels and DR monae's but doesn't physically see a change in the bump in the lower abdominals. Prior Treatments and Tests None. Developmental History Developmental History 3 pregnancies and 3 births and all vaginal (13, 11, almost 7 yo). Minor tearing with firstborn and small with the 2nd . Denies urinary leakage after births. Treatment Goals Patient/Caregiver Goals Pt goals: Would like to increase tightness of the PF contractions during intercourse. Strength the lower abdomen to reduce the bump of the DRDorene HEP to continue to further reduce the bump from DR. Personal Factors Other Personal Factors That May Effect Cosemetic surgeries: Breast Therapy/Recovery augmentation, Mini abdominalplasty of skin, nothing muscular. Pt will be moving out of state with spouse by . PT-OP-C Subjective Start: 02/23/23 17:41 Freq: Status: Active Protocol: Document 03/27/23 13:18 LRN (Rec: 03/27/23 15:47 LRN [id number]) OP-PT Subjective Patient Comments Patient Comments ......... PT-OP-I Pelvic Floor Start: 02/23/23 17:41 Freq: Status: Active Protocol: Document 03/06/23 13:00 LRN (Rec: 03/06/23 14:05 LRN [id number]) Pelvic Floor Assessment SEMG (uV) Baseline 4.9 Quick Contraction 12.7 Recruitment Pattern Good Relaxation Fair Holding Fair Stability of Hold Poor/Slow SEMG Stability of Rest Poor/Slow PT-OP-J Posture/Palpation/Skin Start: 02/23/23 17:41 Freq: Status: Active Protocol: Document 03/23/23 13:24 LRN (Rec: 03/23/23 16:37 LRN [id number]) Palpation Assessment Location Abdomen Palpation Location DR Palpation Details Above umbilicus: 3 inches- Closed; 2 inches-1.5 finger widths; 1 inch -2 fingerwidths . Below umbilicus: 2 inches- closed; 1 inch-1.5 finger widths. PT-OP-K Range of Motion Start: 02/23/23 17:41 Freq: Status: Active Protocol: Document 02/27/23 13:22 LRN (Rec: 02/27/23 14:17 LRN [id number]) Lumbar Spine Range of Motion Lumbar Spine Active Degrees Testing Position Standing Flexion 87 Extension 15 Rotation Left 40 Rotation Right 30 Lateral Flexion Left 20 Lateral Flexion Right 13 Comments Trunk AROM: Flexion is 87 deg ?s with 52 deg?s hip flexion, Trunk extension is 20 deg?s with 15 deg?s hip extension. Hip Goniometric Range of Motion Hip Right Passive Testing Position Supine Internal Rotation 55 External Rotation 60 Left Passive Testing Position Supine Internal Rotation 60 External Rotation 60 PT-OP-M Strength Start: 02/23/23 17:41 Freq: Status: Active Protocol: Document 02/27/23 13:22 LRN (Rec: 02/27/23 14:17 LRN [id number]) Trunk Strength Trunk Manual Muscle Testing Core Stabilization Loss of core stab and abdominal doming is present ( with exception of hip ext) with R hip flex, ext, AD. Hip Strength Hip Manual Muscle Testing Right Flexion (L2) 5 Normal Extension (S1) 4 Good Abduction 5 Normal Adduction 4+ Good+ External Rotation 5 Normal Internal Rotation 3+ Fair+ Left Flexion (L2) 5 Normal Extension (S1) 5 Normal Abduction 5 Normal Adduction 5 Normal External Rotation 4 Good Internal Rotation 3+ Fair+ PT-OP-Q Treatments Start: 02/23/23 17:41 Freq: Status: Active Protocol: Document 03/27/23 13:18 LRN (Rec: 03/27/23 15:47 LRN [id number]) Manual Therapy Treatment Soft Tissue Mobilization Sacral Balancing Body Location Sacrum, Iliopsoas, Pub Mobilization Type Sustained Pressure Intensity/Depth Moderate Body Position Prone & Supine Comments Tight to start w/R Sacral sulcus infer glide and PA, decreased R PA of JULIA, and R Ischial Tub, R Pube more inferior. L SAcral sulcus decreased with inferior glide mob of R. 6 pt balancing needed. PF stretching Body Location PF Superficial and Deep PF ms, and OI bilateral Mobilization Type Sustained Pressure,Trigger Point Release Intensity/Depth Superficial Body Position Supine with head supported to see in mirror PT-OP-T Assessment and Plan Start: 02/23/23 17:41 Freq: Status: Active Protocol: Document 03/27/23 13:18 LRN (Rec: 03/27/23 15:47 LRN [id number]) Physical Therapy Assessment Goals Three Impairment Decreased PF contraction strength with sexual intercourse Short Term Goal (STG) Eliminate PF tenderness to improve PF contraction strength. 03/06/23: HEP of self stretching of PF. 03/13/23: I/S in Happy Baby Pose. Added to HEP: Piriformis, Lateral Hip, Fig 4 , Iliopsoas stretches. 03/27/23: Manual stretch of PF to decrease active trP's. STG Duration 03/20/23 (3 weeks) progressed 03/27/23 Intermediate Goal (LTG) Pt and spouse will notice an increase feeling of PF tightness with sexual intercourse. 03/23/23: Spouse reporting pt too tight with intercourse. LTG Duration 04/10/23 (6 weeks) (03/23/23 : MET GOAL) Two Impairment Abdominal doming with TA tightening and daily activities Impairment Doming visible with transfers and pt daily activities. Umbilicus 4 above: Closed Umbilicus 3 above: 1/4 finger widths Umbilicus 2 above: 2 finger widths, very shallow Umbilicus 1 above: 2 finger widths, very shallow Umbilicus Umbilicus: 1 below: 2.5 finger widths Umbilicus: 2 below: 2.5 finger widths Umbilicus: 3 below: Closed Short Term Goal (STG) Strengthen TA to decrease doming with transfers. 03/23/23: Doming noted if pt does not perform TA before head lift. Umbilicus: 3 above-Closed; 2 above-1.5 finger widths; 1 above -2 fingerwidths. 2 below- closed; 1 below-1.5 finger widths. STG Duration 03/20/23 (3 weeks) progressed 03/23/23 Addictions Recovery Specialist Goal (LTG) Strength the lower abdomen with reduction of DR and reduction of doming with daily activities. 03/13/23: No doming noted with cuing for TA tight with yeni hands/knees push in supine. 03/23/23: No doming noted with resisted trunk rotation. LTG Duration 04/10/23 (6 weeks) progressed 03/23/23 One Impairment Lacks appropriate self care HEP Short Term Goal (STG) Pt will be educated in proper deep breathing and core pressure management. 03/13/23: Pt educated in proper breathing and core pressure management with exercise. STG Duration 03/10/23 (2 weeks) (03/13/23: MET GOAL) Intermediate Goal (LTG) Pt will be educated in a self care HEP of progressive core strengthening without onset of doming of abdomen. 03/13/23: TA tightening in supine and hands/knees yeni push. 03/23/23: I/S in Paloff press and ARROM of trunk rotation. LTG Duration 04/10/23 (6 weeks) progressed 03/23/23 Assessment Summary Assessment States she did the trunk rot ex's, hasn't had chance to try PF stretching prior to intercourse. Pt mainly decreawed in mobility with R SIJ and active trigger points relieved after PF STM. Iliococcygeus and coccygeous of levator ani ms do not appear tight, no tenderness noted. Tender with superficial PF ms and OI bilaterally. Physical Therapy Plan Frequency and Duration Frequency of Treatment 1x/Week Duration of treatment (weeks) 6 Plan of Care Start Date 02/27/23 Plan of Care End Date 04/10/23 Next Visit Focus/Plan Next Note Type Treatment Note Next Visit Plan 2 visits remain. Next: Assess response to sacral balancing in PF relaxation. Check for PF pain. Check for DR reduction: TA upper rotational strengthening (Review TA tightening & hands /knees push), progress core strengthening trunk rot with TBand. Add hip R AD & humza IR strengthening. Stretches: Add Trunk R SB & manual rot stretch Neuro-keaton for PF relaxation between reps and long hold (10 secs). Manual: (monitor home dilator stretching) Stretch abdominal region for tightness to close DR (abdominal rotators, TA & QL). Monitor PF strength before and after PF stretch to decrease pain. External and internal stretch as needed to correct PF tone dysfunction. Levator ani release as needed.
--- NOTE | 2023-04-03 17:06 | PT.OTN ---
Current Diagnoses Stiffness of unspecified hip, not elsewhere classified (04/03/23) Separation of muscle (nontraumatic), other site (04/03/23) Muscle weakness (generalized) (04/03/23) Other female genital prolapse (04/03/23) Physical Therapy Treatment Note PT-OP-A Visit Information Start: 02/23/23 17:41 Freq: Status: Active Protocol: Document 04/03/23 14:09 LRN (Rec: 04/03/23 14:52 LRN [id number]) Out-Patient Physical Therapy Visit Information Visit Information Visit Type Treatment Note Visit Start Time 14:09 Visit Stop Time 14:50 Total Visit Minutes 41 Visit Number 6 Evaluation Information Evaluation Date 02/27/23 Precautions Precautions mini-abdominoplasty PT-OP-B Current Condition Start: 02/23/23 17:41 Freq: Status: Active Protocol: Document 02/27/23 13:22 LRN (Rec: 02/27/23 14:17 LRN [id number]) Current Condition History of Current Condition Onset Date 6 months ago. Current Complaints Weakness of PF with sexual intercourse. History of Current Condition Pt denies bladder leakage. With sexual intercourse notices she is not as tight in PF and thinks it may be due to changes with her cycle. She reports a scan has show uterus is retroverted to the back and right. She feels her uterus has shifted previously , but is not been identified by imaging. States after 3 children her uterus may have moved. States her lower abdominal ms are not as tight. Has done Kegels and DR monae's but doesn't physically see a change in the bump in the lower abdominals. Prior Treatments and Tests None. Developmental History Developmental History 3 pregnancies and 3 births and all vaginal (13, 11, almost 7 yo). Minor tearing with firstborn and small with the 2nd . Denies urinary leakage after births. Treatment Goals Patient/Caregiver Goals Pt goals: Would like to increase tightness of the PF contractions during intercourse. Strength the lower abdomen to reduce the bump of the DRDorene HEP to continue to further reduce the bump from DR. Personal Factors Other Personal Factors That May Effect Cosemetic surgeries: Breast Therapy/Recovery augmentation, Mini abdominalplasty of skin, nothing muscular. Pt will be moving out of state with spouse by . PT-OP-C Subjective Start: 02/23/23 17:41 Freq: Status: Active Protocol: Document 04/03/23 14:09 LRN (Rec: 04/03/23 14:52 LRN [id number]) OP-PT Subjective Patient Comments Patient Comments Moving next week, one more visit. States no pain after lst session. Feels shes is getting better loosening of abdomen. PT-OP-I Pelvic Floor Start: 02/23/23 17:41 Freq: Status: Active Protocol: Document 04/03/23 14:09 LRN (Rec: 04/03/23 16:45 LRN [id number]) Pelvic Floor Assessment SEMG (uV) Baseline 2.9 Quick Contraction 12.0 10 Second Contraction 19.5 Recruitment Pattern Good Relaxation Fair Holding Good Stability of Hold Good SEMG Stability of Rest Fair PT-OP-J Posture/Palpation/Skin Start: 02/23/23 17:41 Freq: Status: Active Protocol: Document 03/23/23 13:24 LRN (Rec: 03/23/23 16:37 LRN [id number]) Palpation Assessment Location Abdomen Palpation Location DR Palpation Details Above umbilicus: 3 inches- Closed; 2 inches-1.5 finger widths; 1 inch -2 fingerwidths . Below umbilicus: 2 inches- closed; 1 inch-1.5 finger widths. PT-OP-K Range of Motion Start: 02/23/23 17:41 Freq: Status: Active Protocol: Document 02/27/23 13:22 LRN (Rec: 02/27/23 14:17 LRN [id number]) Lumbar Spine Range of Motion Lumbar Spine Active Degrees Testing Position Standing Flexion 87 Extension 15 Rotation Left 40 Rotation Right 30 Lateral Flexion Left 20 Lateral Flexion Right 13 Comments Trunk AROM: Flexion is 87 deg ?s with 52 deg?s hip flexion, Trunk extension is 20 deg?s with 15 deg?s hip extension. Hip Goniometric Range of Motion Hip Right Passive Testing Position Supine Internal Rotation 55 External Rotation 60 Left Passive Testing Position Supine Internal Rotation 60 External Rotation 60 PT-OP-M Strength Start: 02/23/23 17:41 Freq: Status: Active Protocol: Document 02/27/23 13:22 LRN (Rec: 02/27/23 14:17 LRN [id number]) Trunk Strength Trunk Manual Muscle Testing Core Stabilization Loss of core stab and abdominal doming is present ( with exception of hip ext) with R hip flex, ext, AD. Hip Strength Hip Manual Muscle Testing Right Flexion (L2) 5 Normal Extension (S1) 4 Good Abduction 5 Normal Adduction 4+ Good+ External Rotation 5 Normal Internal Rotation 3+ Fair+ Left Flexion (L2) 5 Normal Extension (S1) 5 Normal Abduction 5 Normal Adduction 5 Normal External Rotation 4 Good Internal Rotation 3+ Fair+ PT-OP-Q Treatments Start: 02/23/23 17:41 Freq: Status: Active Protocol: Document 04/03/23 14:09 LRN (Rec: 04/03/23 14:52 LRN [id number]) Therapeutic Exercises Supine Exercises Oblique tightening Supine Exercise Name Oblique Navdeep reviewed Side bilateral Reps/Minutes 1x TA tightening Supine Exercise Name TA tightening wtih head lifts Reps/Minutes 6' Comments Cuing needed to not breathhold during navdeep hold. Prone Exercises 1/2 Plank Prone Exercise Name 1/2 Plank Reps/Minutes 10 SH Manual Therapy Treatment Soft Tissue Mobilization PF stretching Body Location PF Superficial and Deep PF ms, and OI bilateral Mobilization Type Sustained Pressure,Trigger Point Release Intensity/Depth Superficial Body Position Supine with head supported to see in mirror Comments MIld active trP's L>R side Neuro Re-Education Treatment Other Activities PF decrease in tone Details Downtraining of PF resting tone after 5 & 10 holds to 3 uV's or less. Reps/Duration 15' Comments Cuing for release of substitute ms to decrease resting tone to 3 uV's or less . Discussed pt might try PF stretching before intercourse. PT-OP-T Assessment and Plan Start: 02/23/23 17:41 Freq: Status: Active Protocol: Document 04/03/23 14:09 LRN (Rec: 04/03/23 14:52 LRN [id number]) Physical Therapy Assessment Goals Three Impairment Decreased PF contraction strength with sexual intercourse Short Term Goal (STG) Eliminate PF tenderness to improve PF contraction strength. 03/06/23: HEP of self stretching of PF. 03/13/23: I/S in Happy Baby Pose. Added to HEP: Piriformis, Lateral Hip, Fig 4 , Iliopsoas stretches. 03/27/23: Manual stretch of PF to decrease active trP's 04/03/23: Mild PF tenderness 2-5 and 7-8, and 10 of PF clock, that quickly releases. STG Duration 03/20/23 (3 weeks) progressed 04/03/23 Navy Fighter Pilot Goal (LTG) Pt and spouse will notice an increase feeling of PF tightness with sexual intercourse. 03/23/23: Spouse reporting pt too tight with intercourse. LTG Duration 04/10/23 (6 weeks) (03/23/23 : MET GOAL) Two Impairment Abdominal doming with TA tightening and daily activities Impairment Doming visible with transfers and pt daily activities. Umbilicus 4 above: Closed Umbilicus 3 above: 1/4 finger widths Umbilicus 2 above: 2 finger widths, very shallow Umbilicus 1 above: 2 finger widths, very shallow Umbilicus Umbilicus: 1 below: 2.5 finger widths Umbilicus: 2 below: 2.5 finger widths Umbilicus: 3 below: Closed Short Term Goal (STG) Strengthen TA to decrease doming with transfers. 03/23/23: Doming noted if pt does not perform TA before head lift. Umbilicus: 3 above-Closed; 2 above-1.5 finger widths; 1 above -2 fingerwidths. 2 below- closed; 1 below-1.5 finger widths. 04/03/23: Doming in lower abdomen if pt doesn't perform TA before head lift. Above Umbilicus: 3 closed, 2 -1.5 fingerwidths very shallow, 1 1.5 fingerwidths very shallow. Below Umbilicus: 1-2 fingerwidth, shallow, 2 - closed STG Duration 03/20/23 (3 weeks) progressed 04/03/23 Jail Goal (LTG) Strength the lower abdomen with reduction of DR and reduction of doming with daily activities. 03/13/23: No doming noted with cuing for TA tight with navdeep hands/knees push in supine. 03/23/23: No doming noted with resisted trunk rotation. 04/03/23: Reduction in DR, pt noting doming with some daily activities. LTG Duration 04/10/23 (6 weeks) progressed 03/23/23 One Impairment Lacks appropriate self care HEP Short Term Goal (STG) Pt will be educated in proper deep breathing and core pressure management. 03/13/23: Pt educated in proper breathing and core pressure management with exercise. STG Duration 03/10/23 (2 weeks) (03/13/23: MET GOAL) Navy Fighter Pilot Goal (LTG) Pt will be educated in a self care HEP of progressive core strengthening without onset of doming of abdomen. 03/13/23: TA tightening in supine and hands/knees navdeep push. 03/23/23: I/S in Paloff press and ARROM of trunk rotation. 04/03/23: Pt noting doming with some daily activities. LTG Duration 04/10/23 (6 weeks) progressed 03/23/[address]: Doming in lower abdomen with head lift if not monica TA. DR above umbilicus is more shallow more than below umbilicus. Rotational strengthening needed in lower abs. Pt able to do 1/2 plank with isometric hold. Mild PF tenderness 2-5 and 7-8, and 10 of PF clock, that quickly releases. Physical Therapy Plan Frequency and Duration Frequency of Treatment 1x/Week Duration of treatment (weeks) 6 Plan of Care Start Date 02/27/23 Plan of Care End Date 04/10/23 Next Visit Focus/Plan Next Note Type Discharge Summary Next Visit Plan Pt moving, DC next visit. Check for PF trP's and lower TA DR reduction, trunk SB AROM, strength of humza hip IR and hip AD (If needed, add hip R AD & humza IR strengthening, and Trunk R SB stretch) TA upper rotational strengthening of trunk rot with TBand for lower abd tightening without doming. Review Neuro-keaton for PF relaxation between reps and long holds and self stretch abdominal region for tightness to close
--- NOTE | 2023-04-07 17:38 | PT.OPDS ---
Current Diagnoses Stiffness of unspecified hip, not elsewhere classified (04/03/23) Separation of muscle (nontraumatic), other site (04/03/23) Muscle weakness (generalized) (04/03/23) Other female genital prolapse (04/03/23) Visit Care Team Role Provider Type Elvia Chacko PA-C Attending Provider Non-Staff Family Provider Primary Care Provider Referring Provider Specialty: Medical Address: [address] [place] [address], [id number] Phone: Fax: Email: [email or web address] Visit Number Visit Number 6 Discharge Summary PT-OP-B Current Condition Start: 02/23/23 17:41 Freq: Status: Active Protocol: Document 02/27/23 13:22 LRN (Rec: 02/27/23 14:17 LRN [id number]) Current Condition History of Current Condition Onset Date 6 months ago. Current Complaints Weakness of PF with sexual intercourse. History of Current Condition Pt denies bladder leakage. With sexual intercourse notices she is not as tight in PF and thinks it may be due to changes with her cycle. She reports a scan has show uterus is retroverted to the back and right. She feels her uterus has shifted previously , but is not been identified by imaging. States after 3 children her uterus may have moved. States her lower abdominal ms are not as tight. Has done Kegels and DR monae's but doesn't physically see a change in the bump in the lower abdominals. Prior Treatments and Tests None. Developmental History Developmental History 3 pregnancies and 3 births and all vaginal (13, 11, almost 7 yo). Minor tearing with firstborn and small with the 2nd . Denies urinary leakage after births. Treatment Goals Patient/Caregiver Goals Pt goals: Would like to increase tightness of the PF contractions during intercourse. Strength the lower abdomen to reduce the bump of the DR. HEP to continue to further reduce the bump from DR. Personal Factors Other Personal Factors That May Effect Cosemetic surgeries: Breast Therapy/Recovery augmentation, Mini abdominalplasty of skin, nothing muscular. Pt will be moving out of state with spouse by . PT-OP-C Subjective Start: 02/23/23 17:41 Freq: Status: Active Protocol: Document 04/07/23 17:26 LRN (Rec: 04/07/23 17:38 LRN [id number]) OP-PT Subjective Patient Comments Patient Comments Pt reports with intercourse she had not tenderness. She is aware of her home program of core strengthening and use of wand for PF stretching if tenderness returns. Pt to monitor for hip asymmetry and to do hip stretches to maintain symmetry. Pt doing well and will seek further therapy if needed for PF pain. PT-OP-I Pelvic Floor Start: 02/23/23 17:41 Freq: Status: Active Protocol: Document 04/03/23 14:09 LRN (Rec: 04/03/23 16:45 LRN [id number]) Pelvic Floor Assessment SEMG (uV) Baseline 2.9 Quick Contraction 12.0 10 Second Contraction 19.5 Recruitment Pattern Good Relaxation Fair Holding Good Stability of Hold Good SEMG Stability of Rest Fair PT-OP-J Posture/Palpation/Skin Start: 02/23/23 17:41 Freq: Status: Active Protocol: Document 03/23/23 13:24 LRN (Rec: 03/23/23 16:37 LRN [id number]) Palpation Assessment Location Abdomen Palpation Location DR Palpation Details Above umbilicus: 3 inches- Closed; 2 inches-1.5 finger widths; 1 inch -2 fingerwidths . Below umbilicus: 2 inches- closed; 1 inch-1.5 finger widths. PT-OP-K Range of Motion Start: 02/23/23 17:41 Freq: Status: Active Protocol: Document 02/27/23 13:22 LRN (Rec: 02/27/23 14:17 LRN [id number]) Lumbar Spine Range of Motion Lumbar Spine Active Degrees Testing Position Standing Flexion 87 Extension 15 Rotation Left 40 Rotation Right 30 Lateral Flexion Left 20 Lateral Flexion Right 13 Comments Trunk AROM: Flexion is 87 deg ?s with 52 deg?s hip flexion, Trunk extension is 20 deg?s with 15 deg?s hip extension. Hip Goniometric Range of Motion Hip Right Passive Testing Position Supine Internal Rotation 55 External Rotation 60 Left Passive Testing Position Supine Internal Rotation 60 External Rotation 60 PT-OP-M Strength Start: 02/23/23 17:41 Freq: Status: Active Protocol: Document 02/27/23 13:22 LRN (Rec: 02/27/23 14:17 LRN [id number]) Trunk Strength Trunk Manual Muscle Testing Core Stabilization Loss of core stab and abdominal doming is present ( with exception of hip ext) with R hip flex, ext, AD. Hip Strength Hip Manual Muscle Testing Right Flexion (L2) 5 Normal Extension (S1) 4 Good Abduction 5 Normal Adduction 4+ Good+ External Rotation 5 Normal Internal Rotation 3+ Fair+ Left Flexion (L2) 5 Normal Extension (S1) 5 Normal Abduction 5 Normal Adduction 5 Normal External Rotation 4 Good Internal Rotation 3+ Fair+ PT-OP-T Assessment and Plan Start: 02/23/23 17:41 Freq: Status: Active Protocol: Document 04/07/23 17:26 LRN (Rec: 04/07/23 17:38 LRN [id number]) Physical Therapy Assessment Goals Three Impairment Decreased PF contraction strength with sexual intercourse Short Term Goal (STG) Eliminate PF tenderness to improve PF contraction strength. 03/06/23: HEP of self stretching of PF. 03/13/23: I/S in Happy Baby Pose. Added to HEP: Piriformis, Lateral Hip, Fig 4 , Iliopsoas stretches. 03/27/23: Manual stretch of PF to decrease active trP's 04/03/23: Mild PF tenderness 2-5 and 7-8, and 10 of PF clock, that quickly releases. 04/07/23: Per phone pt reports no pain with intercourse. STG Duration 03/20/23 (3 weeks) (04/07/23 : MET GOAL) Longterm Goal (LTG) Pt and spouse will notice an increase feeling of PF tightness with sexual intercourse. 03/23/23: Spouse reporting pt too tight with intercourse. LTG Duration 04/10/23 (6 weeks) (03/23/23 : MET GOAL) Two Impairment Abdominal doming with TA tightening and daily activities Impairment Doming visible with transfers and pt daily activities. Umbilicus 4 above: Closed Umbilicus 3 above: 1/4 finger widths Umbilicus 2 above: 2 finger widths, very shallow Umbilicus 1 above: 2 finger widths, very shallow Umbilicus Umbilicus: 1 below: 2.5 finger widths Umbilicus: 2 below: 2.5 finger widths Umbilicus: 3 below: Closed Short Term Goal (STG) Strengthen TA to decrease doming with transfers. 03/23/23: Doming noted if pt does not perform TA before head lift. Umbilicus: 3 above-Closed; 2 above-1.5 finger widths; 1 above -2 fingerwidths. 2 below- closed; 1 below-1.5 finger widths. 04/03/23: Doming in lower abdomen if pt doesn't perform TA before head lift. Above Umbilicus: 3 closed, 2 -1.5 fingerwidths very shallow, 1 1.5 fingerwidths very shallow. Below Umbilicus: 1-2 fingerwidth, shallow, 2 - closed STG Duration 03/20/23 (3 weeks) (04/03/23: MET GOAL) Longterm Goal (LTG) Strength the lower abdomen with reduction of DR and reduction of doming with daily activities. 03/13/23: No doming noted with cuing for TA tight with yeni hands/knees push in supine. 03/23/23: No doming noted with resisted trunk rotation. 04/03/23: Reduction in DR, pt noting doming with some daily activities. LTG Duration 04/10/23 (6 weeks) (04/03/23 : Partially met goal) One Impairment Lacks appropriate self care HEP Short Term Goal (STG) Pt will be educated in proper deep breathing and core pressure management. 03/13/23: Pt educated in proper breathing and core pressure management with exercise. STG Duration 03/10/23 (2 weeks) (03/13/23: MET GOAL) Metal [employer]iner Goal (LTG) Pt will be educated in a self care HEP of progressive core strengthening without onset of doming of abdomen. 03/13/23: TA tightening in supine and hands/knees yeni push. 03/23/23: I/S in Paloff press and ARROM of trunk rotation. 04/03/23: Pt noting doming with some daily activities. LTG Duration 04/10/23 (6 weeks) (03/23/23 : Partially met goal) Assessment Summary Assessment The pt has progressed well with therapy and met most of her goals. Per phone pt notes she did not have PF pain with intercourse and was able to recall her HEP that she is to focus on (core, PF stretching for tenderness, ex's for her DR). Over time I believe the pt will be able to close her DR and control the doming of her abdomen with daily activities on her HEP. The pt pt was encourage to seek assessment of her PF for soft tissue anomaly felt during her initial evaluation once she reaches her new living destination. Physical Therapy Plan Other Referrals/Consults Referrals/Consults Recommended Recommend pt have OBGYN assessment of soft tissue anomaly of 10-11 of PF clock when she reaches her next location of stay. Discharge Physical Therapy Discharge Comments Pt is moving from the area in 3 days; therefore is being discharged from PT. Thank you for your referral.
== END 2023-04-18 11:28 | disposition home or self-care (01) ==
LOC: PHYS 14:00
PROVIDERS: Family Provider Physician Assistant; PCP Physician Assistant; Referring Provider Physician Assistant; Visit Provider Physician Assistant
DX: N81.89 Other female genital prolapse (principal); M62.08 Separation of muscle (nontraumatic), other site; M62.81 Muscle weakness (generalized); M25.659 Stiffness of unspecified hip, not elsewhere classified
CPT/HCPCS: 97110; 97112; 97140; 97161; 97535